=== PATIENT | male | born 1955 | race African-American/Black ===

== ENCOUNTER 2019-12-20 11:01 | Inpatient (IN) | payer MEDICARE, OTHER ==
[~2019-12-20] VITALS: Ht 175.3 cm; Wt 83.9 kg
[2019-12-20] MEDS ORDERED: FUROSEMIDE 40MG/4ML VIAL IV ONE (11:15)
[2019-12-20 11:32] LABS: HEMATOCRIT. 29.2 % (42.0-52.0); MEAN CORPUSCULAR HEMOGLOBIN 31.3 pg (28.0-32.0); MEAN CORPUSCULAR VOLUME 91.8 fL (80.0-94.0); MEAN PLATELET VOLUME 8.7 fl (7.4-10.4); PLATELET 198 x1000/uL (130-400); RED BLOOD CELL COUNT 3.18 mill/uL (4.7-6.1); RED CELL DISTRIBUTION WIDTH 14.5 % (11.6-14.6)
[2019-12-20 11:38] LABS: CHLORIDE 108 mEq/L (98-107)
[2019-12-20 13:51] LABS: PLATELET ESTIMATE NORMAL
[2019-12-20] MEDS ORDERED: ACETAMINOPHEN 325MG TABLET PO PRN ×2 (14:30)
[2019-12-20] MEDS ORDERED: DOCUSATE SODIUM 100MG CAPSULE PO PRN (14:30)
[2019-12-20] MEDS ORDERED: IPRATROPIUM/ALBUTEROL 0.5-3(2.5)MG/3ML NEB HHN PRN (14:30)
[2019-12-20] MEDS ORDERED: LORAZEPAM 0.5MG TABLET PO PRN (14:30)
[2019-12-20] MEDS ORDERED: HYDRALAZINE 20MG/ML VIAL IV PRN (14:30)
[2019-12-20] MEDS ORDERED: HYDROCODONE/ACETAMINOPHEN 5/325MG TABLET PO PRN (14:30)
[2019-12-20 15:00] VITALS: BP 149/83
[2019-12-20 15:00] LABS: PHOSPHORUS 3.7 mg/dL (2.5-4.9)
[2019-12-20 15:07] VITALS: BP 149/83
[2019-12-20] MEDS ORDERED: FUROSEMIDE 100MG/10ML VIAL IVP NR (15:15)
[2019-12-20 15:35] LABS: CLARITY URINE CLEAR (CLEAR); COLOR URINE YELLOW (YELLOW); KETONES URINE NEGATIVE (NEGATIVE); LEUKOCYTE ESTERASE URINE NEGATIVE (NEGATIVE); NITRITE URINE NEGATIVE (NEGATIVE); OCCULT BLOOD URINE NEGATIVE (NEGATIVE); PROTEIN URINE 1+ (NEGATIVE); SPECIFIC GRAVITY URINE 1.015 (1.005-1.030); UROBILINOGEN URINE 0.2 E.U./dL (0.2-1.0)
[2019-12-20 16:00] VITALS: BP 151/73
[2019-12-20 16:34] LABS: *AMPHETAMINES SCREEN URINE NEGATIVE (NEGATIVE); *BARBITURATES SCREEN URINE NEGATIVE (NEGATIVE); *BENZODIAZEPINES SCREEN URINE NEGATIVE (NEGATIVE); *COCAINE SCREEN URINE NEGATIVE (NEGATIVE); METHADONE URINE SCREEN NEGATIVE (NEGATIVE)
[2019-12-20 16:35] LABS: CANNABINOID URINE SCREEN NEGATIVE (NEGATIVE); OPIATES URINE SCREEN NEGATIVE (NEGATIVE); PHENCYCLIDINE URINE SCREEN NEGATIVE (NEGATIVE)
[2019-12-20] MEDS: ASPIRIN 81MG TABLET PO SCH (16:42)
[2019-12-20 17:57] VITALS: BP 146/91
[2019-12-20 20:00] VITALS: BP 137/85
[2019-12-20] MEDS: AMLODIPINE 5MG TABLET PO SCH (20:49)
[2019-12-20 22:00] VITALS: BP 156/78
[2019-12-21] VITALS (33 sets, daily range): BP systolic 70–185; BP diastolic 23–100
[2019-12-21 06:26] LABS: HEMATOCRIT. 29.1 % (42.0-52.0); HEMOGLOBIN. 9.8 g/dL (14.0-18.0); MEAN CORPUSCULAR HEMOGLOBIN 30.8 pg (28.0-32.0); MEAN CORPUSCULAR VOLUME 91.5 fL (80.0-94.0); MEAN PLATELET VOLUME 9.4 fl (7.4-10.4); PLATELET 187 x1000/uL (130-400); RED BLOOD CELL COUNT 3.18 mill/uL (4.7-6.1); RED CELL DISTRIBUTION WIDTH 14.5 % (11.6-14.6)
[2019-12-21] MEDS: FUROSEMIDE 100MG/10ML VIAL IVP SCH ×2 (08:57→17:45)
[2019-12-21] MEDS: ASPIRIN 81MG TABLET PO SCH (08:57)
[2019-12-21] MEDS: AMLODIPINE 5MG TABLET PO SCH (08:58)
[2019-12-21] MEDS ORDERED: FUROSEMIDE 100MG/10ML VIAL IVP NR (09:00)
[2019-12-21] MEDS ORDERED: NOREPINEPHRINE 4 MG in DEXT 5% WATER 246 ML IV NR (11:47)
[2019-12-21] MEDS ORDERED: EPINEPHRINE 1 MG in SODIUM CHLORIDE 0.9% 249 ML IV NR (11:47)
[2019-12-21] MEDS ORDERED: BACITRACIN 50,000 UNITS/VIAL ONE (12:23)
[2019-12-21] MEDS ORDERED: BUPIVACAINE/EPINEPH/PF 0.25%/0.0005 10ML ONE (12:23)
[2019-12-21] MEDS ORDERED: SKIN ADHESIVE 0.7 GM EA TOP ONE (12:23)
[2019-12-21] MEDS ORDERED: NORMAL SALINE 0.9% 10 ML SYR ONE (12:23)
[2019-12-21] MEDS ORDERED: LOSA100T32 PO (12:39)
[2019-12-21] MEDS ORDERED: MAGN500C4 MT (12:39)
[2019-12-21] MEDS ORDERED: AMLO10TA80 MT (12:39)
[2019-12-21] MEDS ORDERED: ATOR40TA70 PO (12:39)
[2019-12-21] MEDS ORDERED: MULT-1146 PO (12:39)
[2019-12-21] MEDS ORDERED: HYDR100T26 MT (12:39)
[2019-12-21] MEDS ORDERED: ISOS60TA4 MT (12:39)
[2019-12-21] MEDS ORDERED: CARV12.545 MT (12:39)
[2019-12-21] MEDS ORDERED: ASPI-1160 MT (12:39)
[2019-12-21] MEDS ORDERED: DOCU-272 PO (12:39)
[2019-12-21] MEDS ORDERED: CHOL500063 PO (12:39)
[2019-12-21] MEDS ORDERED: FURO40TA5 MT (12:39)
[2019-12-21] MEDS ORDERED: LEVO150T8 MT (12:39)
[2019-12-21] MEDS ORDERED: FERR325T6 MT (12:39)
[2019-12-21] MEDS ORDERED: ROCURONIUM BROMIDE 10MG/ML VIAL 5ML IV ONE (13:30)
[2019-12-21] MEDS ORDERED: MEPERIDINE HCL/PF 25MG/ML CPJ IV PRN (15:00)
[2019-12-21] MEDS ORDERED: HYDROMORPHONE HCL/PF 2MG/ML CPJ IV PRN (15:00)
[2019-12-21] MEDS ORDERED: ALBUTEROL (0.5%) 2.5MG/0.5ML NEB HHN ONE (15:00)
[2019-12-21] MEDS ORDERED: ONDANSETRON HCL 4MG/2ML INJ IV PRN (15:00)
[2019-12-21] MEDS ORDERED: SODIUM CHLORIDE 0.9% 500 ML IV PRN (15:25)
[2019-12-21 16:20] LABS: HEMATOCRIT. 30.2 % (42.0-52.0); MEAN CORPUSCULAR HEMOGLOBIN 30.2 pg (28.0-32.0); MEAN CORPUSCULAR VOLUME 91.7 fL (80.0-94.0); MEAN PLATELET VOLUME 9.2 fl (7.4-10.4); PLATELET 196 x1000/uL (130-400); RED CELL DISTRIBUTION WIDTH 14.8 % (11.6-14.6)
[2019-12-21 16:26] LABS: BG BASE EXCESS -3.3 mmol/L (-2.0-2.0); BG CARBOXYHEMOGLOBIN 0.5 % (0.5-1.5); BG DEOXYHEMOGLOBIN 16.9 % (0.0-5.0); BG FRACTION INSPIRED OXYGEN 28; BG HCO3 ACT 21.9 mmol/L (22.0-26.0); BG METHEMOGLOBIN 0.1 % (0.0-1.5); BG OXYHEMOGLOBIN 82.5 % (94.0-97.0); BG PCO2 39.5 mmHg (35.0-45.0); BG PH 7.361 (7.350-7.450); BG PO2 46.4 mmHg (75.0-100.0); BG SAMPLE SITE A-LINE; BG TOTAL HEMOGLOBIN 10.3 g/dL (12.0-18.0); BG VENT MODE NASAL CANNULA
[2019-12-21 16:29] LABS: INR 1.2; PARTIAL THROMBOPLASTIN TIME 29.6 sec (23.4-31.0); PROTHROMBIN TIME 12.1 sec (9.6-11.0)
[2019-12-21] MEDS: DOCUSATE SODIUM 100MG CAPSULE PO SCH (17:45)
[2019-12-21] MEDS: ONDANSETRON HCL 4MG/2ML INJ IV PRN (20:34)
[2019-12-21] MEDS: CARVEDILOL 6.25 MG TABLET PO SCH (21:35)
[2019-12-21 22:57] LABS: PLATELET ESTIMATE NORMAL
[2019-12-21 23:27] LABS: PLATELET ESTIMATE NORMAL
[2019-12-22] VITALS (57 sets, daily range): BP systolic 68–184; BP diastolic 43–110
[2019-12-22] MEDS ORDERED: FUROSEMIDE 40MG/4ML VIAL IVP NR (00:30)
[2019-12-22] MEDS: ONDANSETRON HCL 4MG/2ML INJ IV PRN (03:51)
[2019-12-22 06:03] LABS: HEMATOCRIT. 29.8 % (42.0-52.0); HEMOGLOBIN. 9.9 g/dL (14.0-18.0); MEAN CORPUSCULAR HEMOGLOBIN 30.9 pg (28.0-32.0); MEAN CORPUSCULAR VOLUME 92.9 fL (80.0-94.0); MEAN PLATELET VOLUME 9.6 fl (7.4-10.4); PLATELET 200 x1000/uL (130-400); RED CELL DISTRIBUTION WIDTH 14.6 % (11.6-14.6)
[2019-12-22] MEDS: FUROSEMIDE 100MG/10ML VIAL IVP SCH ×2 (06:12→17:05)
[2019-12-22 06:19] LABS: PHOSPHORUS 5.8 mg/dL (2.5-4.9)
[2019-12-22] MEDS: DOCUSATE SODIUM 100MG CAPSULE PO SCH ×2 (08:40→17:05)
[2019-12-22] MEDS: ASPIRIN 81MG TABLET PO SCH (08:40)
[2019-12-22] MEDS: CARVEDILOL 6.25 MG TABLET PO SCH (08:41)
[2019-12-22 13:48] LABS: HEPATITIS B SURFACE AB < 3.1 mIU/mL
[2019-12-22 13:59] LABS: HEPATITIS B SURFACE ANTIGEN NEGATIVE
[2019-12-22 17:04] LABS: PLATELET ESTIMATE NORMAL
[2019-12-22] MEDS: AMLODIPINE 5MG TABLET PO SCH (20:47)
[2019-12-23] VITALS (16 sets, daily range): BP systolic 119–160; BP diastolic 55–77
[2019-12-23 06:13] LABS: HEMATOCRIT. 31.2 % (42.0-52.0); HEMOGLOBIN. 10.5 g/dL (14.0-18.0); MEAN CORPUSCULAR HEMOGLOBIN 30.8 pg (28.0-32.0); MEAN CORPUSCULAR VOLUME 91.3 fL (80.0-94.0); MEAN PLATELET VOLUME 9.3 fl (7.4-10.4); PLATELET 202 x1000/uL (130-400); RED BLOOD CELL COUNT 3.42 mill/uL (4.7-6.1); RED CELL DISTRIBUTION WIDTH 14.4 % (11.6-14.6)
[2019-12-23 06:28] LABS: PHOSPHORUS 4.8 mg/dL (2.5-4.9)
[2019-12-23 08:08] LABS: HIV SCREEN 4G Non Reactive (Non Reactive)
[2019-12-23] MEDS: LOSARTAN POTASSIUM 25 MG TABLET PO SCH (10:41)
[2019-12-23] MEDS: FUROSEMIDE 100MG/10ML VIAL IVP SCH ×2 (10:41→18:21)
[2019-12-23] MEDS: DOCUSATE SODIUM 100MG CAPSULE PO SCH ×2 (10:41→16:59)
[2019-12-23] MEDS: AMLODIPINE 5MG TABLET PO SCH ×2 (10:42→20:18)
[2019-12-23] MEDS: ASPIRIN 81MG TABLET PO SCH (10:43)
[2019-12-23] MEDS ORDERED: HEPARIN SODIUM 1,000 UNIT/1ML VIAL IV NR (13:45)
[2019-12-23] MEDS ORDERED: FUROSEMIDE 100MG/10ML VIAL IVP NR (15:00)
[2019-12-23] MEDS: FERROUS SULFATE 325MG TABLET PO SCH ×2 (15:24→16:59)
[2019-12-24] VITALS (13 sets, daily range): BP systolic 116–148; BP diastolic 55–74
[2019-12-24 07:14] LABS: HEMATOCRIT. 31.7 % (42.0-52.0); HEMOGLOBIN. 10.6 g/dL (14.0-18.0); MEAN CORPUSCULAR HEMOGLOBIN 30.6 pg (28.0-32.0); MEAN CORPUSCULAR VOLUME 91.4 fL (80.0-94.0); MEAN PLATELET VOLUME 9.4 fl (7.4-10.4); PLATELET 204 x1000/uL (130-400); RED BLOOD CELL COUNT 3.47 mill/uL (4.7-6.1); RED CELL DISTRIBUTION WIDTH 14.2 % (11.6-14.6)
[2019-12-24 07:15] LABS: PHOSPHORUS 3.5 mg/dL (2.5-4.9)
[2019-12-24] MEDS: FERROUS SULFATE 325MG TABLET PO SCH ×3 (08:00→17:24)
[2019-12-24] MEDS: FUROSEMIDE 100MG/10ML VIAL IVP SCH ×2 (08:00→17:23)
[2019-12-24] MEDS: ASPIRIN 81MG TABLET PO SCH (08:02)
[2019-12-24] MEDS: LOSARTAN POTASSIUM 25 MG TABLET PO SCH (08:02)
[2019-12-24] MEDS: DOCUSATE SODIUM 100MG CAPSULE PO SCH ×2 (08:03→17:24)
[2019-12-24] MEDS: AMLODIPINE 5MG TABLET PO SCH ×2 (08:03→21:14)
[2019-12-24 08:53] LABS: PLATELET ESTIMATE NORMAL
[2019-12-24] MEDS: AMIODARONE HCL 200 MG TABLET PO SCH ×2 (10:49→21:00)
[2019-12-24 11:41] LABS: PLATELET ESTIMATE NORMAL
[2019-12-25] VITALS (12 sets, daily range): BP systolic 113–146; BP diastolic 51–72
[2019-12-25 07:11] LABS: HEMATOCRIT. 29.8 % (42.0-52.0); HEMOGLOBIN. 9.9 g/dL (14.0-18.0); MEAN CORPUSCULAR HEMOGLOBIN 30.3 pg (28.0-32.0); MEAN CORPUSCULAR VOLUME 90.9 fL (80.0-94.0); MEAN PLATELET VOLUME 9.5 fl (7.4-10.4); PLATELET 209 x1000/uL (130-400); RED BLOOD CELL COUNT 3.28 mill/uL (4.7-6.1); RED CELL DISTRIBUTION WIDTH 14.3 % (11.6-14.6)
[2019-12-25 07:17] LABS: PHOSPHORUS 3.2 mg/dL (2.5-4.9)
[2019-12-25] MEDS: ASPIRIN 81MG TABLET PO SCH (09:25)
[2019-12-25] MEDS: DOCUSATE SODIUM 100MG CAPSULE PO SCH ×2 (09:25→17:55)
[2019-12-25] MEDS: LOSARTAN POTASSIUM 25 MG TABLET PO SCH (09:25)
[2019-12-25] MEDS: FUROSEMIDE 100MG/10ML VIAL IVP SCH ×2 (09:26→17:55)
[2019-12-25] MEDS: AMIODARONE HCL 200 MG TABLET PO SCH (09:26)
[2019-12-25] MEDS: AMLODIPINE 5MG TABLET PO SCH ×2 (09:26→21:32)
[2019-12-25] MEDS: FERROUS SULFATE 325MG TABLET PO SCH ×3 (09:26→17:55)
[2019-12-25] MEDS ORDERED: ENOXAPARIN 80MG/0.8ML SYR SUBCUT SCH (11:00)
[2019-12-25] MEDS ORDERED: HEPARIN SODIUM 1,000 UNIT/1ML VIAL IV NR (15:00)
[2019-12-25 17:19] LABS: PLATELET ESTIMATE NORMAL
[2019-12-26] VITALS (26 sets, daily range): BP systolic 125–163; BP diastolic 57–80
[2019-12-26 06:58] LABS: HEMATOCRIT. 29.8 % (42.0-52.0); HEMOGLOBIN. 10.1 g/dL (14.0-18.0); MEAN CORPUSCULAR HEMOGLOBIN 30.8 pg (28.0-32.0); MEAN CORPUSCULAR VOLUME 90.9 fL (80.0-94.0); MEAN PLATELET VOLUME 9.5 fl (7.4-10.4); PLATELET 227 x1000/uL (130-400); RED BLOOD CELL COUNT 3.28 mill/uL (4.7-6.1)
[2019-12-26 06:59] LABS: INR 1.1; PARTIAL THROMBOPLASTIN TIME 30.4 sec (23.4-31.0); PROTHROMBIN TIME 11.6 sec (9.6-11.0)
[2019-12-26] MEDS ORDERED: LIDOCAINE HCL 1% 20ML VIAL (Pyxis) INJ ONE (08:09)
[2019-12-26] MEDS ORDERED: SODIUM BICARBONATE 4% (2.4MEQ) 5ML VIAL IV ONE (08:09)
[2019-12-26] MEDS ORDERED: CEFAZOLIN 1000MG PREMIX 50 ML IV ONE (08:28)
[2019-12-26] MEDS ORDERED: FENTANYL CITRATE/PF 50MCG/ML 2ML VIAL ONE (08:28)
[2019-12-26] MEDS ORDERED: CEFAZOLIN 1000MG PREMIX 50 ML IV NR (08:28)
[2019-12-26] MEDS ORDERED: HEPARIN 1000 UNITS/ML 10ML ONE (08:37)
[2019-12-26 08:59] LABS: PLATELET ESTIMATE NORMAL
[2019-12-26] MEDS ORDERED: FENTANYL CITRATE/PF 50MCG/ML 2ML VIAL IV ONE (09:15)
[2019-12-26] MEDS: FERROUS SULFATE 325MG TABLET PO SCH ×3 (12:20→18:15)
[2019-12-26] MEDS: DOCUSATE SODIUM 100MG CAPSULE PO SCH ×2 (12:33→18:16)
[2019-12-26] MEDS: ASPIRIN 81MG TABLET PO SCH (12:33)
[2019-12-26] MEDS: FUROSEMIDE 100MG/10ML VIAL IVP SCH ×2 (12:33→18:16)
[2019-12-26] MEDS: AMLODIPINE 5MG TABLET PO SCH ×2 (12:33→21:34)
[2019-12-26] MEDS: LOSARTAN POTASSIUM 25 MG TABLET PO SCH (12:33)
[2019-12-26] MEDS ORDERED: WARFARIN SODIUM 7.5MG TABLET PO SCH (18:00)
[2019-12-26] MEDS: ENOXAPARIN 80MG/0.8ML SYR SUBCUT SCH (21:36)
[2019-12-27] VITALS (15 sets, daily range): BP systolic 109–156; BP diastolic 50–77
[2019-12-27] MEDS: FUROSEMIDE 100MG/10ML VIAL IVP SCH ×2 (07:15→18:25)
[2019-12-27] MEDS: FERROUS SULFATE 325MG TABLET PO SCH ×3 (07:20→18:25)
[2019-12-27 07:55] LABS: HEMATOCRIT. 32.5 % (42.0-52.0); HEMOGLOBIN. 10.8 g/dL (14.0-18.0); MEAN CORPUSCULAR HEMOGLOBIN 30.3 pg (28.0-32.0); MEAN CORPUSCULAR VOLUME 91.1 fL (80.0-94.0); MEAN PLATELET VOLUME 9.5 fl (7.4-10.4); PLATELET 245 x1000/uL (130-400); RED BLOOD CELL COUNT 3.56 mill/uL (4.7-6.1); RED CELL DISTRIBUTION WIDTH 14.1 % (11.6-14.6)
[2019-12-27 08:04] LABS: INR 1.2; PROTHROMBIN TIME 12.9 sec (9.6-11.0)
[2019-12-27 08:10] LABS: PHOSPHORUS 2.6 mg/dL (2.5-4.9)
[2019-12-27] MEDS: DOCUSATE SODIUM 100MG CAPSULE PO SCH ×2 (09:00→17:00)
[2019-12-27 10:36] LABS: PLATELET ESTIMATE NORMAL
[2019-12-27 11:26] LABS: INR 1.3; PROTHROMBIN TIME 13.4 sec (9.6-11.0)
[2019-12-27] MEDS: ASPIRIN 81MG TABLET PO SCH (11:43)
[2019-12-27] MEDS: LOSARTAN POTASSIUM 25 MG TABLET PO SCH ×2 (11:44→22:23)
[2019-12-27] MEDS: AMLODIPINE 5MG TABLET PO SCH ×2 (11:44→22:23)
[2019-12-27] MEDS ORDERED: WARFARIN SODIUM 7.5MG TABLET PO SCH (18:00)
[2019-12-27] MEDS: ENOXAPARIN 80MG/0.8ML SYR SUBCUT SCH (22:24)
[2019-12-28] VITALS (9 sets, daily range): BP systolic 141–156; BP diastolic 58–75
[2019-12-28 06:45] LABS: INR 2.1; PROTHROMBIN TIME 21.5 sec (9.6-11.0)
[2019-12-28 06:51] LABS: HEMATOCRIT. 30.1 % (42.0-52.0); HEMOGLOBIN. 10.2 g/dL (14.0-18.0); MEAN CORPUSCULAR HEMOGLOBIN 30.7 pg (28.0-32.0); MEAN CORPUSCULAR VOLUME 90.8 fL (80.0-94.0); MEAN PLATELET VOLUME 8.9 fl (7.4-10.4); PLATELET 266 x1000/uL (130-400); RED BLOOD CELL COUNT 3.31 mill/uL (4.7-6.1)
[2019-12-28 06:54] LABS: PHOSPHORUS 2.7 mg/dL (2.5-4.9)
[2019-12-28] MEDS: DOCUSATE SODIUM 100MG CAPSULE PO SCH (09:00)
[2019-12-28] MEDS: ASPIRIN 81MG TABLET PO SCH (09:17)
[2019-12-28] MEDS: AMLODIPINE 5MG TABLET PO SCH (09:18)
[2019-12-28] MEDS: FERROUS SULFATE 325MG TABLET PO SCH ×2 (09:18→12:20)
[2019-12-28] MEDS: FUROSEMIDE 100MG/10ML VIAL IVP SCH (09:18)
[2019-12-28] MEDS: LOSARTAN POTASSIUM 25 MG TABLET PO SCH (09:19)
[2019-12-28] MEDS ORDERED: LOSA25TA3 PO (09:36)
[2019-12-28] MEDS ORDERED: WARF-67 MT (09:39)
[2019-12-28 11:56] LABS: PLATELET ESTIMATE NORMAL
[2019-12-28] MEDS ORDERED: WARFARIN SODIUM 5MG TABLET PO NR (18:00)
== END 2019-12-28 12:28 | disposition home or self-care (01) | DRG 270 ==
LOC: ER 11:22 → EDBEDREQSVC 12:26 → EDBEDREQ 12:26 → EDBEDREQSVC 12:39 → ENRESERV 13:53 → 3WST 14:56 → CVICU 12-21 14:50 → 3WST 12-22 21:35
PROVIDERS: ADMIT Internal Medicine; ATTEND Internal Medicine
PROC: 5A09357 Assistance with Respiratory Ventilation, Less than 24 Consecutive Hours, Continuous Positive Airway Pressure (ICD-10-PCS; 2019-12-20)
PROC: 0W9D0ZZ Drainage of Pericardial Cavity, Open Approach (ICD-10-PCS; principal; 2019-12-21)
PROC: 0W9B0ZZ Drainage of Left Pleural Cavity, Open Approach (ICD-10-PCS; 2019-12-21)
PROC: 5A1D70Z Performance of Urinary Filtration, Intermittent, Less than 6 Hours Per Day (ICD-10-PCS; 2019-12-22)
PROC: 5A1D70Z Performance of Urinary Filtration, Intermittent, Less than 6 Hours Per Day (ICD-10-PCS; 2019-12-25)
PROC: 5A1D70Z Performance of Urinary Filtration, Intermittent, Less than 6 Hours Per Day (ICD-10-PCS; 2019-12-26)
PROC: 05PYX3Z Removal of Infusion Device from Upper Vein, External Approach (ICD-10-PCS; 2019-12-26)
PROC: 0JH63XZ Insertion of Tunneled Vascular Access Device into Chest Subcutaneous Tissue and Fascia, Percutaneous Approach (ICD-10-PCS; 2019-12-26)
PROC: 02HV33Z Insertion of Infusion Device into Superior Vena Cava, Percutaneous Approach (ICD-10-PCS; 2019-12-26)
PROC: B5181ZA Fluoroscopy of Superior Vena Cava using Low Osmolar Contrast, Guidance (ICD-10-PCS; 2019-12-26)
DX: I13.2 Hypertensive heart and chronic kidney disease with heart failure and with stage 5 chronic kidney disease, or end stage renal disease (principal); J96.01 Acute respiratory failure with hypoxia; N18.6 End stage renal disease; I50.43 Acute on chronic combined systolic (congestive) and diastolic (congestive) heart failure; I31.3 Pericardial effusion (noninflammatory); I32 Pericarditis in diseases classified elsewhere; I47.2 Ventricular tachycardia; N17.9 Acute kidney failure, unspecified; J91.8 Pleural effusion in other conditions classified elsewhere; D64.9 Anemia, unspecified; E11.22 Type 2 diabetes mellitus with diabetic chronic kidney disease; E78.5 Hyperlipidemia, unspecified; I44.0 Atrioventricular block, first degree; I27.20 Pulmonary hypertension, unspecified; I48.91 Unspecified atrial fibrillation; I35.0 Nonrheumatic aortic (valve) stenosis; E78.00 Pure hypercholesterolemia, unspecified; D72.821 Monocytosis (symptomatic); Z99.2 Dependence on renal dialysis; Z82.49 Family history of ischemic heart disease and other diseases of the circulatory system; Z83.3 Family history of diabetes mellitus; Z79.899 Other long term (current) drug therapy; Z79.82 Long term (current) use of aspirin; Z03.818 Encounter for observation for suspected exposure to other biological agents ruled out
CPT/HCPCS: 36415; 36558; 36589; 36600; 71045; 76770; 76937; 77001; 80048; 80053; 80061; 80305; 81003; 82375; 82607; 82728; 82746; 82805; 82962; 83036; 83540; 83550; 83735; 83880; 84100; 84145; 84484; 85025; 85379; 86705; 86706; 86803; 86850; 86900; 87070; 87075; 87102; 87210; 87340; 87389; 87635; 88108; 88305; 93005; 93306; 94640; 94660; 99152; 99153; 99291; C1750; C1769; J0171; J0690; J1642; J1644; J1650; J1940; J2405; J3010; J3490; J7050; J7060; L8514; G0500